=== PATIENT | male | born 1985 | race Caucasian/White ===

== ENCOUNTER 2022-01-05 17:11 | Emergency (ER) | payer OTHER ==
[~2022-01-05] VITALS: Ht 177.8 cm; Wt 90.7 kg
[~2022-01-05 17:11] MED LIST: ALBU90OI INH; ALBU90OI61 INH; AMOCLA875 PO; AZIT250 PO; BUPR150ER PO; CETI10 PO; NAPR550 PO; NEOPOLHCSU RIGHTEAR; PRED20 PO; SPACER IH; TOBR.3OPSO OP
[2022-01-05] MEDS ORDERED: IBUP800 PO (18:34)
[2022-01-05] MEDS ORDERED: Flovent 44 mc10.6 GM INH (18:34)
[2022-01-05] MEDS ORDERED: ALBU90OI INH (18:34)
[2022-01-05] MEDS ORDERED: COMBIVENT RESPIM4 G1 INH (18:34)
[2022-01-05] MEDS ORDERED: OXAYDO5 M1 PO ×2 (18:34→18:36)
[2022-01-05] MEDS ORDERED: MONT10T PO (18:34)
== END 2022-01-05 19:03 | disposition home or self-care (01) ==
LOC: ER 17:11
DX: S22.32XA Fracture of one rib, left side, initial encounter for closed fracture (principal); V00.841A Fall from standing electric scooter, initial encounter; J45.998 Other asthma; Z91.013 Allergy to seafood
CPT/HCPCS: 71101; A9270

== ENCOUNTER → 2022-02-06 | Outpatient (CLI) | payer OTHER ==
[~2022-02-06] MED LIST changes: +COMBIVENT RESPIM4 G1 INH; +Flovent 44 mc10.6 GM INH; +IBUP800 PO; +MONT10T PO; +OXAYDO5 M1 PO
[2022-02-11 20:09] LABS: HSV-1 DNA Negative (Negative); HSV-2 DNA Positive (Negative)
== END | disposition home or self-care (01) ==
LOC: LAB 15:50 → LAB SHORT 15:50
PROVIDERS: Registered Nurse Community Health
DX: Z20.2 Contact with and (suspected) exposure to infections with a predominantly sexual mode of transmission (principal)
CPT/HCPCS: 87529

== ENCOUNTER 2024-08-09 07:51 | Day surgery (SDC) | payer OTHER ==
[~2024-08-09] VITALS: Ht 177.8 cm; Wt 100.4 kg
[~2024-08-09 07:51] MED LIST changes: +CEPH500 PO; +NS 500 ML IV ONE
[2024-08-09] MEDS ORDERED: CeFAZolin Sodium 2,000 MG VIAL ONE (07:56)
[2024-08-09] MEDS ORDERED: CEPH250A (08:19)
[2024-08-09] MEDS ORDERED: HYDROCODONE-AC1 EA19 (08:20)
[2024-08-09] MEDS ORDERED: NS 1,000 ML IV ONE (08:34)
[2024-08-09] MEDS ORDERED: propofoL 20 ML IV ONE (08:53)
[2024-08-09] MEDS ORDERED: Lidocaine HCl 2% 10 ML SDA ONE (09:31)
[2024-08-09] MEDS ORDERED: Dexamethasone Sod Phos 10 MG/ML 1ML VIAL ONE (09:54)
[2024-08-09] MEDS ORDERED: Ondansetron HCl 2 MG / ML 2ML Vial ONE (09:54)
[2024-08-09] MEDS ORDERED: Ketorolac Tromethamine 30mg Vial ONE (09:54)
[2024-08-09] MEDS ORDERED: Lidocaine HCl 2% 10 ML SDA INJ ONE (10:05)
--- NOTE | 2024-08-09 10:25 | NUR ---
08/09/24 1025 Diane Padilla PT ARRIVES TO PACU W/ OA IN PLACE. REPORT FROM [facility] & ANS. VSS, ON RA, RESPIRATIONS NORMAL & NON-LABORED. LUNGS CTA BILAT. NO VISIBLE SIGNS OF DISTRESS NOTED.
--- NOTE | 2024-08-09 10:49 | NUR ---
08/09/24 Diane Gilliam PT ARRIVES TO SDU A&O, ON RA, VSS. PT STATES HE HAS SOME "STINGING" DISCOMFORT TO L HAND, BUT IT'S TOLERABLE. PT DENIES NAUSEA.
[2024-08-09 10:51] VITALS: BP 121/87
[2024-08-09] MEDS ORDERED: HYDROcodone 5-APAP 325 TAB ONE (11:16)
== END 2024-08-09 11:34 | disposition home or self-care (01) ==
LOC: ORSCSDS 07:51
PROVIDERS: Orthopaedic Surgery
PROC: 0LQ80ZZ Repair Left Hand Tendon, Open Approach (ICD-10-PCS; principal; 2024-08-09 09:15)
DX: S61.213A Laceration without foreign body of left middle finger without damage to nail, initial encounter (principal); S61.239A Puncture wound without foreign body of unspecified finger without damage to nail, initial encounter; W25.XXXA Contact with sharp glass, initial encounter; F17.290 Nicotine dependence, other tobacco product, uncomplicated; Z79.899 Other long term (current) drug therapy; E66.9 Obesity, unspecified; Z68.31 Body mass index [BMI] 31.0-31.9, adult
CPT/HCPCS: A9270; J0690; J1100; J1885; J2003; J2405; J2704; J7040